=== PATIENT | male | born 1955 | race Caucasian/White ===

== ENCOUNTER 2019-06-07 14:52 | Outpatient (CLI) | payer BC, SELFPAY ==
[2019-06-07 16:39] LABS: ALT 22 U/L (12-78); AST 20 U/L (15-37); Albumin 3.9 g/dL (3.4-5.0); Alkaline Phosphatase 88 U/L (46-116); Anion Gap 7.9 mmol/L (3-11); BUN 17 mg/dL (7-18); Bilirubin, Total 0.8 mg/dL (0.2-1.0); CO2 28.1 mmol/L (21.0-32.0); CREATININE 0.94 mg/dL (0.70-1.30); Calcium 9.1 mg/dL (8.5-10.1); Chloride 105 mmol/L (98-107); Glucose 80 mg/dL (70-100); Potassium 4.4 mmol/L (3.5-5.1); Sodium 141 mmol/L (136-145); TSH (W/Ref FT4) 28.74 uIU/mL (0.36-3.74); Total Protein 6.9 g/dL (6.4-8.2)
[2019-06-07 17:20] LABS: FREE T4 0.76 ng/dL (0.76-1.46)
[2019-06-08 09:48] LABS: PSA, Screening 0.5 ng/ml (0-4.5)
== END 2019-06-07 15:12 ==
PROVIDERS: PCP Family Medicine; Visit Provider Family Medicine
DX: Z00.00 Encounter for general adult medical examination without abnormal findings (principal); E03.9 Hypothyroidism, unspecified; I25.10 Atherosclerotic heart disease of native coronary artery without angina pectoris
CPT/HCPCS: 36415; 80053; 84153; 84439; 84443

== ENCOUNTER 2020-06-10 21:32 | Outpatient (REF) | payer MEDICARE, SELFPAY ==
[2020-06-11 08:22] LABS: TSH (W/Ref FT4) 1.39 uIU/mL (0.36-3.74)
== END 2020-06-10 21:52 ==
LOC: LBN 21:32
PROVIDERS: PCP Family Medicine; Visit Provider Family Medicine
DX: E03.9 Hypothyroidism, unspecified (principal)
CPT/HCPCS: 84443

== ENCOUNTER 2021-06-18 16:21 | Outpatient (REF) | payer OTHER, SELFPAY ==
[2021-06-18 20:44] LABS: TSH (W/Ref FT4) 0.14 uIU/mL (0.36-3.74)
[2021-06-18 21:07] LABS: FREE T4 1.31 ng/dL (0.76-1.46)
[2021-06-19 17:18] LABS: PSA, Diagnostic 0.8 ng/mL (0.0-4.5)
== END 2021-06-18 16:22 | disposition home or self-care (01) ==
LOC: LBN 16:21
PROVIDERS: Visit Provider Family Medicine
DX: E03.9 Hypothyroidism, unspecified (principal); N40.0 Benign prostatic hyperplasia without lower urinary tract symptoms
CPT/HCPCS: 84153; 84439; 84443

== ENCOUNTER 2022-10-25 10:43 | Outpatient (CLI) | payer OTHER, SELFPAY ==
[2022-10-25 12:59] LABS: ALT 26 U/L (16-63); AST 20 U/L (15-37); Albumin 4.1 g/dL (3.4-5.0); Alkaline Phosphatase 104 U/L (46-116); Anion Gap 8.1 mmol/L (3-11); BUN 15 mg/dL (7-18); Bilirubin, Total 0.7 mg/dL (0.2-1.0); CO2 28.9 mmol/L (21.0-32.0); Calcium 9.2 mg/dL (8.5-10.1); Calculated LDL 189 mg/dL (<100); Chloride 103 mmol/L (98-107); Cholesterol 278 mg/dL (<200); Estimated GFR 81.47 (mL/min/1.73m2); Glucose 90 mg/dL (74-106); HDL Cholesterol 58 mg/dL (40-60); Sodium 140 mmol/L (136-145); TSH (W/Ref FT4) 0.23 uIU/mL (0.36-3.74); Total Protein 7.6 g/dL (6.4-8.2); Triglyceride 156 mg/dL (<150)
[2022-10-25 13:16] LABS: FREE T4 1.75 ng/dL (0.76-1.46)
[2022-10-25 18:01] LABS: PSA, Diagnostic 0.9 ng/mL (<=4.5)
== END 2022-10-25 10:44 | disposition home or self-care (01) ==
LOC: LOS 10:43
PROVIDERS: PCP Family Medicine; Referring Provider Family Medicine; Visit Provider Family Medicine
DX: E03.9 Hypothyroidism, unspecified (principal); I25.10 Atherosclerotic heart disease of native coronary artery without angina pectoris; N18.9 Chronic kidney disease, unspecified; Z00.00 Encounter for general adult medical examination without abnormal findings; N40.0 Benign prostatic hyperplasia without lower urinary tract symptoms
CPT/HCPCS: 36415; 80053; 80061; 84153; 84439; 84443

== ENCOUNTER 2024-07-30 09:15 | Outpatient (CLI) | payer MEDICARE, SELFPAY ==
[2024-07-30 12:38] LABS: ALT 33 U/L (16-63); AST 22 U/L (15-37); Albumin 3.7 g/dL (3.4-5.0); Alkaline Phosphatase 105 U/L (46-116); Anion Gap 6.5 mmol/L (3-11); BUN 14 mg/dL (7-18); CO2 29.5 mmol/L (21.0-32.0); CREATININE 1.1 mg/dL (0.70-1.30); Calcium 9.1 mg/dL (8.5-10.1); Calculated LDL 184 mg/dL (<100); Chloride 104 mmol/L (98-107); Cholesterol 266 mg/dL (<200); Estimated GFR 71.77 (mL/min/1.73m2); Glucose 96 mg/dL (74-106); HDL Cholesterol 53 mg/dL (40-60); Potassium 4.4 mmol/L (3.5-5.1); Sodium 140 mmol/L (136-145); TSH (W/Ref FT4) 3.34 uIU/mL (0.36-3.74); Total Protein 7.1 g/dL (6.4-8.2); Triglyceride 146 mg/dL (<150)
[2024-07-30 18:33] LABS: PSA, Diagnostic 0.9 ng/mL (<=6.5)
[2024-07-30 19:14] LABS: Hepatitis C Ab w Rflx HCV PCR Negative (Negative)
== END 2024-07-30 09:16 | disposition home or self-care (01) ==
LOC: LOS 09:15
PROVIDERS: PCP Family Medicine; Referring Provider Family Medicine; Visit Provider Family Medicine
DX: E03.9 Hypothyroidism, unspecified (principal); Z11.59 Encounter for screening for other viral diseases; I10 Essential (primary) hypertension; R35.1 Nocturia; N40.1 Benign prostatic hyperplasia with lower urinary tract symptoms; Z09 Encounter for follow-up examination after completed treatment for conditions other than malignant neoplasm; I25.10 Atherosclerotic heart disease of native coronary artery without angina pectoris
CPT/HCPCS: 36415; 80053; 80061; 86803; 84153; 84443

== ENCOUNTER 2025-08-22 10:32 | Outpatient (CLI) | payer MEDICARE, SELFPAY ==
[2025-08-22 14:26] LABS: ALT 23 U/L (16-63); AST 18 U/L (15-37); Albumin 3.9 g/dL (3.4-5.0); Alkaline Phosphatase 106 U/L (46-116); Anion Gap 7.6 mmol/L (3-11); BUN 12 mg/dL (7-18); Bilirubin, Total 1.0 mg/dL (0.2-1.0); CO2 28.4 mmol/L (21.0-32.0); Calcium 8.8 mg/dL (8.5-10.1); Calculated LDL 212 mg/dL (<100); Chloride 100 mmol/L (98-107); Cholesterol 283 mg/dL (<200); Estimated GFR 79.97 (mL/min/1.73m2); Glucose 100 mg/dL (74-106); HDL Cholesterol 49 mg/dL (>or=40); Potassium 3.7 mmol/L (3.5-5.1); Sodium 136 mmol/L (136-145); TSH (W/Ref FT4) 0.90 uIU/mL (0.36-3.74); Total Protein 7.3 g/dL (6.4-8.2); Triglyceride 113 mg/dL (<150)
== END 2025-08-22 10:33 | disposition home or self-care (01) ==
PROVIDERS: PCP Family Medicine; Visit Provider Family Medicine
DX: E03.9 Hypothyroidism, unspecified (principal); I10 Essential (primary) hypertension
CPT/HCPCS: 36415; 80053; 80061; 84443